=== PATIENT | female | born 1945 | race Caucasian/White ===

== ENCOUNTER → 2017-12-09 | Outpatient (CLI) | payer OTHER ==
[2017-12-09 15:26] LABS: CREATININE 0.8 mg/dL (0.6-1.3)
== END ==
LOC: M.ULTRA 15:00 → M.CT 16:00
PROVIDERS: General Practice
DX: G31.9 Degenerative disease of nervous system, unspecified (principal); R41.82 Altered mental status, unspecified; R46.89 Other symptoms and signs involving appearance and behavior; R41.3 Other amnesia